=== PATIENT | male | born 1980 | race Caucasian/White ===

== ENCOUNTER 2017-01-21 14:15 | Emergency (ER) | payer OTHER ==
[~2017-01-21] VITALS: Ht 188 cm; Wt 98.6 kg
[2017-01-21 14:25] VITALS: BP 136/86; PULSE 68; RESP 16; O2SAT 98
--- NOTE | 2017-01-21 15:18 | ED.REPORT ---
HPI-General Illness Date of Service Jan 21, 2017 ED Provider: Mayank Morgan MD Pt is a 36 y/o male with a history of stress-induced seizures and nephrolithiasis who presents to the ED c/o extreme exhaustion onset 14:15 today. Additional symptoms include decreased intake in fluids, numbness/ tingling, and trouble sleeping. He denies SOB, bladder or bowel incontinence, biting his tongue, fever, chills, nausea, vomiting, or diarrhea. He states his stress-induced seizure came on today due to the stress of rent due and not sleeping. Pt has a history of stress-induced seizures when he gets overwhelmed and have been intermittent for 5 years. He describes his seizure as non-tremor, "stares off into space", typically last for a few minutes, and only he can get himself out of the seizure. He has not seen a regular doctor for these seizures in 5 years. Nursing Notes Stated Complaint: EXTREME EXHAUSTION, SEIZURES Chief Complaint: Psychiatric Complaint Nursing Notes Reviewed: Yes Allergies: Coded Allergies: No Known Allergies (Unverified , 01/21/17) General Time Seen by MD: 15:17 Chief Complaint Other (Extreme exhaustion ) Hx Obtained From: Patient, Spouse Arrived By: Walk-in Sudden in Onset?: Yes Onset Occurred: 1 - 4 hours ago Symptom Duration: Intermittent Severity: Current: Mild Severity: Maximum: Moderate Associated with: Reports: Numb extremities Additional Notes: Decreased intake in fluids, trouble sleeping Pertinent Negative: Pt denies other symptoms Recent Healthcare: No recent doctor visit, No recent hospitalization Similar Sx Previous: Yes Past Medical History Past Medical History Intermittent stress-induced seizures Nephrolithiasis Social History [address] 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 Physical Exam Vital Signs Vital Signs Date Time Temp Pulse Resp B/P Pulse Ox O2 Delivery O2 Flow Rate FiO2 01/21/17 17:10 60 20 119/70 98 Room Air 01/21/17 14:25 37.0 68 16 136/86 98 Room Air Initial VS: Reviewed Extremities: Vascular intact, Neuro intact, No swelling, No tenderness Skin: Warm, Dry, No cyanosis Psychiatric: Mood/affect normal, Behavior normal, Normal thought content General/Constitutional: Awake, Alert Head / Eyes: Normocephalic, PERRL, EOMI Neck: Atraumatic, Supple, Full range of motion, Thyroid NL Respiratory / Chest: Atraumatic, Breath sounds NL, Breath sounds = bilat Cardiovascular: Heart rate NL, Regular rhythm, Heart sounds NL, No gallop, No murmurs, No rubs Neurologic: Oriented X3, Speech NL, No motor deficits, No sensory deficits, Gait NL No ataxia Negative Romberg test Normal finger-nose test bilaterally Interpretation & Diagnostics Lab Results Interpretation Result Diagram: 01/21/17 1614 01/21/17 1614 Test 01/21/17 16:14 01/21/17 16:44 White Blood Count 9.5th/mm3 (3.8-10.1) Red Blood Count 4.80mil/mm3 (4.40-5.80) Hemoglobin 14.6g/dL (13.8-17.2) Hematocrit 43.1% (41.0-50.0) Mean Corpuscular Volume 89.8fL (81-100) Mean Corpuscular Hemoglobin 30.4pg (27.0-35.0) Mean Corpuscular Hemoglobin Concent 33.9% (32.0-37.0) Red Cell Distribution Width 12.5% (12.3-15.4) Platelet Count 214bil/L (150-400) Neutrophils (%) (Auto) 62.1% (40-74) Lymphocytes (%) (Auto) 28.3% (14-46) Monocytes (%) (Auto) 8.2% (4-12) Eosinophils (%) (Auto) 1.1% (0-5) Basophils (%) (Auto) 0.2% (0-3) Sodium Level 140mEq/L (134-144) Potassium Level 4.3mEq/L (3.5-5.2) Chloride Level 105mEq/L (97-108) Carbon Dioxide Level 23mmol/L (18-29) Blood Urea Nitrogen 11mg/dL (6-20) Creatinine 0.81mg/dL (0.76-1.27) Estimat Glomerular Filtration Rate 115mL/min (>59) Glucose Level 100mg/dL (60-99) Calcium Level 8.8mg/dL (8.5-10.1) Total Bilirubin 0.3mg/dL (0.0-1.2) Aspartate Amino Transf (AST/SGOT) 22U/L (0-50) Alanine Aminotransferase (ALT/SGPT) 21U/L (0-44) Alkaline Phosphatase 49U/L (25-150) Total Protein 7.3g/dL (6.4-8.4) Albumin 4.2g/dL (3.4-5.0) Thyroid Stimulating Hormone (TSH) 3.360uIU/mL (0.450-4.500) Hold Ly Top Tube Received (Received) Hold Urine Received (Received) Re-Eval/Medical Decision Source of Hx: Old records Time of Eval: 16:55 Patient Status: Condition improved Re-Evaluation/Progress Note: Patient rechecked. Discussed plan for discharge. Patient understands and agrees with plan. F/U instructions and RTER warnings given. All questions addressed at this time. Counseled Regarding: Diagnosis, Lab results, Need for follow-up, When/why to return to ED Discharge & Departure Primary Impression: Stress reaction, acute, predominant psychomotor Disposition: Home Discharge Condition All VS Reviewed: Yes Condition: Stable Additional Instructions: Thank you for entrusting us with your care today. Your emergency department evaluation today including examination and lab work are reassuring. There is no dangerous cause for your symptoms today. Please call your primary care physician tomorrow in order to schedule a follow- up appointment for a recheck. Please return to the emergency department for any new or worsening conditions including any difficulty breathing, fevers, chills, nausea, vomiting, chest pain , lightheadedness, or weakness. Scribe Attestation Portions of this note were transcribed by Samara Hancock. I, Dr. Morgan, personally performed the history, physical exam and medical decision-making; I reviewed and confirmed the accuracy of the information in the transcribed note. Mayank Morgan MD Jan 21, 2017 15:18 Samara Hancock Jan 21, 2017 15:21
[2017-01-21 16:18] LABS: BASOPHILS % (AUTO) 0.2 % (0-3); EOSINOPHILS % (AUTO) 1.1 % (0-5); MONOCYTES % (AUTO) 8.2 % (4-12); Mean Corpuscular Hemoglobin 30.4 pg (27.0-35.0); Mean Corpuscular Volume 89.8 fL (81-100); NEUTROPHILS % (AUTO) 62.1 % (40-74); Platelet Count 214 bil/L (150-400)
[2017-01-21 17:10] VITALS: BP 119/70; PULSE 60; RESP 20; O2SAT 98
== END 2017-01-21 17:11 | disposition home or self-care (01) ==
LOC: SED 14:15
DX: F43.8 Other reactions to severe stress (principal); R56.9 Unspecified convulsions; F17.210 Nicotine dependence, cigarettes, uncomplicated; F15.21 Other stimulant dependence, in remission; G47.8 Other sleep disorders; Z87.442 Personal history of urinary calculi